=== PATIENT | male | born 1960 | race African-American/Black ===

== ENCOUNTER 2020-10-18 08:34 | Inpatient (IN) | payer OTHER ==
[~2020-10-18] VITALS: Ht 182.9 cm; Wt 114.0 kg
[2020-10-18] MEDS ORDERED: SODIUM CHLORIDE 0.9% 1,000 ML IV ONE (09:45)
[2020-10-18 10:30] LABS: Basophils # (auto) 0.1 10 ^3/uL (0-0.2); Basophils % (auto) 0.5 % (0.0-2.0); Eosinophils # (auto) 0 10 ^3/uL (0-0.8); Hematocrit 49.4 % (41.0-53.0); Hemoglobin 16.9 g/dL (13.5-17.5); Lymphocytes # (auto) 0.8 10 ^3/uL (0.4-5.4); Lymphocytes % (auto) 5.7 % (10.0-50.0); Mean Corpuscular Hemoglobin 29.4 pg (28.0-32.0); Mean Corpuscular Hgb Conc. 34.2 g/dL (32.0-36.0); Mean Corpuscular Volume 86.1 fL (80.0-100.0); Monocytes # (auto) 0.7 10 ^3/uL (0-1.3); Monocytes % (auto) 4.5 % (0.0-12.0); Neutrophils # (auto) 12.9 10 ^3/uL (1.6-8.6); Neutrophils % (auto) 89.3 % (37.0-80.0); Nucleated Red Blood Cells % 0.2 %; Platelet Count (auto) 215 10^3/uL (140-450); Red Blood Cells 5.74 10^6/uL (4.5-5.90); Red Cell Distribution Width 12.4 % (11.8-14.3); White Blood Cell 14.4 10^3/uL (4.4-10.8)
[2020-10-18 11:19] LABS: Albumin 4.1 g/dL (3.4-5.0); Anion Gap 16 (5-15); Blood Urea Nitrogen 29 mg/dL (7-18); Calcium 8.8 mg/dL (8.5-10.1); Carbon Dioxide 16 mmol/L (21-32); Chloride 97 mmol/L (98-107); Potassium 5.1 mmol/L (3.5-5.1); Sodium 129 mmol/L (136-145)
[2020-10-18 11:30] LABS: Alanine Aminotransferase 24 U/L (16-61); Alkaline Phosphatase 91 U/L (45-117); Aspartate Aminotransferase 7 U/L (15-37); Bilirubin, Total 0.8 mg/dL (0.2-1.0); GFR African American 54 mL/min; GFR Non-African American 44 mL/min; Total Protein 9.2 g/dL (6.4-8.2)
[2020-10-18 11:38] LABS: BUN/Creatinine Ratio 17.2
[2020-10-18 11:41] LABS: Glucose 547 mg/dL (74-106)
[2020-10-18] MEDS ORDERED: InsuLIN REG 1unit/0.01ml Soln (100units/ml) IV ONE ×2 (12:30→23:30)
[2020-10-18] MEDS ORDERED: DEXTROSE (50%) 50ML SYRG IV PRN ×2 (12:30→23:30)
[2020-10-18] MEDS ORDERED: IOHEXOL 350 MG/ML 100ML IJ ONE ×2 (12:45→23:21)
[2020-10-18] MEDS ORDERED: ACCU-CHEK COMFORT CURVE STRIP VI SCH (13:30)
[2020-10-18 14:22] LABS: Magnesium 2.6 mg/dL (1.6-2.6); Phosphorus 5.2 mg/dL (2.5-4.90)
[2020-10-18] MEDS ORDERED: SODIUM CHLORIDE 0.9% 1,000 ML IV SCH (16:30)
[2020-10-18 22:55] LABS: BUN/Creatinine Ratio 18.3
[2020-10-18 23:00] LABS: Potassium 5.6 mmol/L (3.5-5.1)
[2020-10-18] MEDS ORDERED: MORPHINE SULF INJ 2 MG/ML SYRINGE 1ML IV PRN (23:30)
[2020-10-18] MEDS ORDERED: MORPHINE SULFATE 4 MG/ML SYR/VIAL IV PRN (23:30)
[2020-10-18] MEDS ORDERED: DOCUSATE SOD 100 MG CAP PO PRN (23:30)
[2020-10-18] MEDS ORDERED: NITROGLYCERIN 0.4 MG SL TAB SL PRN (23:30)
[2020-10-18] MEDS ORDERED: ACETAMINOPHEN 325 MG TAB PO PRN (23:30)
[2020-10-18] MEDS ORDERED: HYDROcodone-ACET 5/325MG TAB PO PRN (23:30)
[2020-10-18] MEDS ORDERED: ONDANSETRON HCL 4 MG/2 ML VIAL IV PRN (23:30)
[2020-10-18] MEDS ORDERED: SODIUM ZIRCONIUM CYCL 10 GM PAK PO ONE (23:30)
[2020-10-19] MEDS: SODIUM CHLORIDE 0.9% 1,000 ML IV SCH ×9 (00:31→21:58)
[2020-10-19] MEDS: ACCU-CHEK COMFORT CURVE STRIP VI SCH ×6 (00:38→19:53)
[2020-10-19] MEDS: InsuLIN REG 1unit/0.01ml Soln (100units/ml) SC SCH ×6 (00:45→19:53)
[2020-10-19] MEDS: InsuLIN R (HUMAN) 100 UNITS in SODIUM CHL 0.9% 99 ML IV SCH ×2 (01:02→12:30)
[2020-10-19 01:31] LABS: BUN/Creatinine Ratio 19.4; Calcium 8.7 mg/dL (8.5-10.1); Potassium 5.3 mmol/L (3.5-5.1)
[2020-10-19 07:11] LABS: Basophils # (auto) 0 10 ^3/uL (0-0.2); Basophils % (auto) 0.2 % (0.0-2.0); Eosinophils # (auto) 0 10 ^3/uL (0-0.8); Hematocrit 46.7 % (41.0-53.0); Hemoglobin 16.2 g/dL (13.5-17.5); Lymphocytes # (auto) 1.4 10 ^3/uL (0.4-5.4); Lymphocytes % (auto) 9.3 % (10.0-50.0); Mean Corpuscular Hemoglobin 29.7 pg (28.0-32.0); Mean Corpuscular Hgb Conc. 34.6 g/dL (32.0-36.0); Mean Corpuscular Volume 85.9 fL (80.0-100.0); Monocytes # (auto) 1.5 10 ^3/uL (0-1.3); Monocytes % (auto) 9.3 % (0.0-12.0); Neutrophils # (auto) 12.7 10 ^3/uL (1.6-8.6); Neutrophils % (auto) 81.2 % (37.0-80.0); Nucleated Red Blood Cells % 0.1 %; Platelet Count (auto) 195 10^3/uL (140-450); Red Blood Cells 5.44 10^6/uL (4.5-5.90); Red Cell Distribution Width 12.9 % (11.8-14.3); White Blood Cell 15.6 10^3/uL (4.4-10.8)
[2020-10-19 07:35] LABS: Potassium 4.5 mmol/L (3.5-5.1)
[2020-10-19 07:44] LABS: Albumin 3.8 g/dL (3.4-5.0); BUN/Creatinine Ratio 18.1; Bilirubin, Total 0.6 mg/dL (0.2-1.0); Calcium 8.6 mg/dL (8.5-10.1); Total Protein 8.8 g/dL (6.4-8.2)
[2020-10-19 09:21] LABS: Cholesterol 220 mg/dL (< 200); HDL Cholesterol 41 mg/dL (40-59); LDL Cholesterol 151 mg/dL (< 100); Triglycerides 121 mg/dL (< 150)
[2020-10-19] MEDS ORDERED: INSULIN LANTUS (GLARGINE) 1 /0.01ml (100units/ml) SC SCH (10:00)
[2020-10-19] MEDS: HEPARIN SODIUM (PORCINE) 5000 UNITS/ML 1ML VIAL SC SCH ×2 (10:10→21:58)
[2020-10-19] MEDS: FAMOTIDINE (10MG/ML) 2ML VL IV SCH ×2 (10:10→21:58)
[2020-10-19] MEDS ORDERED: INSULIN LANTUS (GLARGINE) 1 /0.01ml (100units/ml) SC ONE (15:00)
[2020-10-20] MEDS: ACCU-CHEK COMFORT CURVE STRIP VI SCH ×7 (02:15→23:33)
[2020-10-20] MEDS: InsuLIN REG 1unit/0.01ml Soln (100units/ml) SC SCH ×7 (02:20→23:36)
[2020-10-20] MEDS: SODIUM CHLORIDE 0.9% 1,000 ML IV SCH ×3 (03:55→09:41)
[2020-10-20 06:55] LABS: Basophils # (auto) 0 10 ^3/uL (0-0.2); Basophils % (auto) 0.4 % (0.0-2.0); Eosinophils # (auto) 0 10 ^3/uL (0-0.8); Eosinophils % (auto) 0.4 % (0.0-7.0); Hematocrit 39.2 % (41.0-53.0); Hemoglobin 13.5 g/dL (13.5-17.5); Lymphocytes # (auto) 1.8 10 ^3/uL (0.4-5.4); Lymphocytes % (auto) 18.2 % (10.0-50.0); Mean Corpuscular Hemoglobin 29.1 pg (28.0-32.0); Mean Corpuscular Hgb Conc. 34.5 g/dL (32.0-36.0); Mean Corpuscular Volume 84.4 fL (80.0-100.0); Monocytes # (auto) 0.9 10 ^3/uL (0-1.3); Neutrophils # (auto) 7.2 10 ^3/uL (1.6-8.6); Platelet Count (auto) 167 10^3/uL (140-450); Red Blood Cells 4.65 10^6/uL (4.5-5.90); Red Cell Distribution Width 12.6 % (11.8-14.3)
[2020-10-20 07:20] LABS: Potassium 3.6 mmol/L (3.5-5.1)
[2020-10-20 07:25] LABS: Albumin 3.2 g/dL (3.4-5.0); BUN/Creatinine Ratio 18.5; Bilirubin, Total 0.7 mg/dL (0.2-1.0)
[2020-10-20] MEDS: FAMOTIDINE (10MG/ML) 2ML VL IV SCH ×2 (09:34→21:59)
[2020-10-20] MEDS: HEPARIN SODIUM (PORCINE) 5000 UNITS/ML 1ML VIAL SC SCH ×2 (09:40→22:00)
[2020-10-20] MEDS ORDERED: INSULIN LANTUS (GLARGINE) 1 /0.01ml (100units/ml) SC SCH (10:00)
[2020-10-20 16:30] VITALS: BP 143/87
[2020-10-20] MEDS ORDERED: PANTOPRAZOLE 40 MG TAB PO ONE (16:30)
--- NOTE | 2020-10-20 16:30 | NUR ---
Telemetry admit from ER REGGIE HENDRIX V admitted to Telemetry unit after SBAR received. Patient oriented to ARIANE SOW, RN primary RN, unit, room 294A, bed, and unit policies regarding patient care and visiting hours. Patient now on continuous telemetry monitoring, tele box # 52 and telemetry reading on arrival to unit is sinus rhythm 82. Patient weighed by bedscale and encouraged to call if they need something. All questions and concerns addressed, patient verbalized understanding. Bed in low and locked position, rails up x2, no-slip socks offered, patient refused at this time.
--- NOTE | 2020-10-20 16:45 | NUR ---
DR PLUMMER AT BEDSIDE
[2020-10-20] MEDS: SUCRALFATE 1 GM/10 ML ORAL SUSP PO SCH ×2 (16:55→21:59)
[2020-10-20 17:06] VITALS: BP 143/87
[2020-10-20] MEDS ORDERED: TAMS0.4C36 PO (17:35)
--- NOTE | 2020-10-20 18:25 | NUR ---
URINE SPECIMEN COLLECTED
--- NOTE | 2020-10-20 19:00 | NUR ---
Opening Shift Note Assumed care of patient, awake and alert. No S/S of distress/SOB or pain. Instructed on POC and to call for assist PRN, will continue to monitor for changes Q1hr and PRN. Patient in the lowest possible position with call light within reach. Bed rails up x2.
[2020-10-20 20:00] VITALS: BP 118/70
[2020-10-20] MEDS: CLOTRIMAZOLE 1 % CREAM 15GM TOP SCH (21:59)
[2020-10-20] MEDS: PANTOPRAZOLE 40 MG TAB PO SCH (21:59)
[2020-10-20 22:00] VITALS: BP 118/70
[2020-10-20] MEDS: INSULIN LANTUS (GLARGINE) 1 /0.01ml (100units/ml) SC SCH (22:00)
[2020-10-20] MEDS ORDERED: MICONAZOLE NITRATE 2 % VAGINAL CREAM 45 GM PV SCH (22:00)
[2020-10-21] MEDS: SODIUM CHLORIDE 0.9% 1,000 ML IV SCH ×2 (01:30→18:21)
[2020-10-21] MEDS: ACCU-CHEK COMFORT CURVE STRIP VI SCH ×5 (03:59→21:16)
[2020-10-21] MEDS: InsuLIN REG 1unit/0.01ml Soln (100units/ml) SC SCH ×5 (04:09→21:16)
[2020-10-21] MEDS: SUCRALFATE 1 GM/10 ML ORAL SUSP PO SCH ×4 (06:12→21:18)
[2020-10-21] MEDS: INSULIN LANTUS (GLARGINE) 1 /0.01ml (100units/ml) SC SCH ×2 (06:16→21:17)
--- NOTE | 2020-10-21 07:30 | NUR ---
Opening Shift Note Assumed care of patient, resting comfortably. No S/S of distress/SOB or pain on room air. Instructed on POC and to call for assist PRN, will continue to monitor for changes Q1hr and PRN. Bed in low and locked position, rails up x2, no-slip socks on.
[2020-10-21 09:00] VITALS: BP 138/75
[2020-10-21] MEDS: FAMOTIDINE (10MG/ML) 2ML VL IV SCH ×2 (10:30→21:19)
[2020-10-21] MEDS: PANTOPRAZOLE 40 MG TAB PO SCH ×2 (10:30→21:19)
[2020-10-21] MEDS: CLOTRIMAZOLE 1 % CREAM 15GM TOP SCH ×2 (10:34→21:19)
[2020-10-21] MEDS: HEPARIN SODIUM (PORCINE) 5000 UNITS/ML 1ML VIAL SC SCH ×2 (10:34→21:18)
--- NOTE | 2020-10-21 10:55 | NUR ---
DR PLUMMER AT BEDSIDE
[2020-10-21] MEDS ORDERED: INSULIN LANTUS (GLARGINE) 1 /0.01ml (100units/ml) SC ONE (11:00)
--- NOTE | 2020-10-21 12:00 | NUR ---
Nutrition Assessment/Consult Notes Please refer to link for full assessment notes. Est Energy needs: 1151-4711 kcals (23-25 kcal/kgBW) Est Protein needs: 65-81 gms/day (0.8-1.0 gm/kgBW) Will continue to monitor and reassess prn. Addendum: 10/21/20 at [address] Amended: Links added.
[2020-10-21 13:00] VITALS: BP 140/91
--- NOTE | 2020-10-21 13:21 | NUR ---
DR TRUJILLO AT BEDSIDE
--- NOTE | 2020-10-21 14:20 | NUR ---
IV insertion/IV removal IV access obtained, via clean sterile technique by inserting 20 gauge catheter at right forearm after 1 attempt. IV secured properly. No trauma to site. Patient tolerated well. IV DC'd to right hand with clean sterile technique, catheter fully intact due to pain and tenderness on flushing. Pressure dressing applied to site. Patient tolerated well.
[2020-10-21 17:00] VITALS: BP 127/94
[2020-10-21 22:00] VITALS: BP 123/75
[2020-10-21 23:04] LABS: Basophils # (auto) 0 10 ^3/uL (0-0.2); Basophils % (auto) 0.5 % (0.0-2.0); Eosinophils # (auto) 0.1 10 ^3/uL (0-0.8); Eosinophils % (auto) 1.3 % (0.0-7.0); Hematocrit 39.3 % (41.0-53.0); Hemoglobin 13.9 g/dL (13.5-17.5); Lymphocytes # (auto) 1.8 10 ^3/uL (0.4-5.4); Lymphocytes % (auto) 27.8 % (10.0-50.0); Mean Corpuscular Hemoglobin 29.9 pg (28.0-32.0); Mean Corpuscular Hgb Conc. 35.3 g/dL (32.0-36.0); Mean Corpuscular Volume 84.8 fL (80.0-100.0); Monocytes # (auto) 0.8 10 ^3/uL (0-1.3); Monocytes % (auto) 11.4 % (0.0-12.0); Neutrophils # (auto) 3.9 10 ^3/uL (1.6-8.6); Nucleated Red Blood Cells % 0.2 %; Platelet Count (auto) 125 10^3/uL (140-450); Red Blood Cells 4.64 10^6/uL (4.5-5.90); Red Cell Distribution Width 12.4 % (11.8-14.3); White Blood Cell 6.6 10^3/uL (4.4-10.8)
[2020-10-21 23:26] LABS: Potassium 3.3 mmol/L (3.5-5.1)
[2020-10-21 23:30] LABS: BUN/Creatinine Ratio 15.2; Calcium 8.1 mg/dL (8.5-10.1)
[2020-10-22] MEDS: SODIUM CHLORIDE 0.9% 1,000 ML IV SCH (01:20)
[2020-10-22] MEDS: ACCU-CHEK COMFORT CURVE STRIP VI SCH ×6 (04:00→20:00)
[2020-10-22] MEDS: InsuLIN REG 1unit/0.01ml Soln (100units/ml) SC SCH ×5 (04:00→16:00)
[2020-10-22 05:00] VITALS: BP 116/78
[2020-10-22] MEDS: SUCRALFATE 1 GM/10 ML ORAL SUSP PO SCH ×3 (06:41→17:50)
[2020-10-22] MEDS: INSULIN LANTUS (GLARGINE) 1 /0.01ml (100units/ml) SC SCH (06:48)
--- NOTE | 2020-10-22 08:08 | NUR ---
Patient sitting on the edge of the bed. He drank some juices and informed patient not to eat or drink after 0800. Surgery called and patient is scheduled to have EGD at 1300. Consent form signed, except the check lists. will fill it out. call light within reach, bed in low position, instructed patient to call for assistance when getting out of the bed. will continue to monitor patient.
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
[2020-10-22 09:00] VITALS: BP 116/73
[2020-10-22] MEDS: HEPARIN SODIUM (PORCINE) 5000 UNITS/ML 1ML VIAL SC SCH (10:00)
[2020-10-22] MEDS: FAMOTIDINE (10MG/ML) 2ML VL IV SCH (10:07)
[2020-10-22] MEDS: PANTOPRAZOLE 40 MG TAB PO SCH (10:09)
[2020-10-22] MEDS: CLOTRIMAZOLE 1 % CREAM 15GM TOP SCH (10:10)
[2020-10-22 11:07] LABS: Basophils # (auto) 0 10 ^3/uL (0-0.2); Basophils % (auto) 0.6 % (0.0-2.0); Eosinophils # (auto) 0.1 10 ^3/uL (0-0.8); Eosinophils % (auto) 1.8 % (0.0-7.0); Hematocrit 38.4 % (41.0-53.0); Hemoglobin 13.5 g/dL (13.5-17.5); Lymphocytes # (auto) 1.5 10 ^3/uL (0.4-5.4); Lymphocytes % (auto) 26.7 % (10.0-50.0); Mean Corpuscular Hemoglobin 29.5 pg (28.0-32.0); Mean Corpuscular Hgb Conc. 35.2 g/dL (32.0-36.0); Mean Corpuscular Volume 83.9 fL (80.0-100.0); Monocytes # (auto) 0.7 10 ^3/uL (0-1.3); Monocytes % (auto) 12.1 % (0.0-12.0); Neutrophils # (auto) 3.4 10 ^3/uL (1.6-8.6); Neutrophils % (auto) 58.8 % (37.0-80.0); Nucleated Red Blood Cells % 0.2 %; Platelet Count (auto) 126 10^3/uL (140-450); Red Blood Cells 4.58 10^6/uL (4.5-5.90); Red Cell Distribution Width 12.2 % (11.8-14.3); White Blood Cell 5.7 10^3/uL (4.4-10.8)
[2020-10-22 11:21] LABS: Calcium 8.1 mg/dL (8.5-10.1); Potassium 3.3 mmol/L (3.5-5.1)
[2020-10-22 11:22] LABS: BUN/Creatinine Ratio 10.1
[2020-10-22 11:28] LABS: INR 1.07 (0.9-1.15); Partial Thromboplastin Time 24.6 sec (23.0-31.2)
[2020-10-22 13:00] VITALS: BP 126/77
[2020-10-22] MEDS ORDERED: MIDAZOLAM HCL 1MG/1ML-2 ML VIAL ONE (13:23)
[2020-10-22] MEDS ORDERED: LIDOCAINE 1% (LOCAL ANESTH.) PF 5ml SDV ONE (13:24)
[2020-10-22] MEDS ORDERED: PROPOFOL 10 MG/ML 20 ML IV ONE (13:25)
[2020-10-22] MEDS ORDERED: KETAMINE HCL 10 ML ONE (13:26)
[2020-10-22] MEDS ORDERED: diphenhdrAMINE HCL 50 MG/1 ML VL ONE (13:26)
[2020-10-22] MEDS ORDERED: GLYCOPYRROLATE 0.2 MG/ML 1ML VIAL ONE (13:26)
[2020-10-22] MEDS ORDERED: SUCCINYLCHOLINE CHLORIDE 20 MG/ML 10ML VIAL IV ONE (13:36)
[2020-10-22] MEDS ORDERED: POTASSIUM EFFERVESENT TAB 25 MEQ PO ONE (16:30)
[2020-10-22 16:58] VITALS: BP 112/67
--- NOTE | 2020-10-22 19:01 | NUR ---
Patient denies any abdominal pain or discomfort. vital signs stable. held morning dose of heparin subQ due to procedure, notified Dr. Saldana in the nursing station. Patient went down to EGD at 1225 and came back at 1430. patient was drawsy, but arousable and awake at 1600 requesting "real food and not clear liquid or full liquid" diet. Dr. Saldana notified and changed diet to CCHO diet. patient denies any pain or discomfort after the procedure and vital signs were stable.
[2020-10-22] MEDS ORDERED: HEPARIN SODIUM (PORCINE) 5000 UNITS/ML 1ML VIAL ONE (23:56)
[2020-10-23] MEDS: FAMOTIDINE (10MG/ML) 2ML VL IV SCH ×3 (00:04→22:12)
[2020-10-23] MEDS: PANTOPRAZOLE 40 MG TAB PO SCH ×3 (00:04→22:12)
[2020-10-23] MEDS: SUCRALFATE 1 GM/10 ML ORAL SUSP PO SCH ×5 (00:04→22:11)
[2020-10-23 00:07] VITALS: BP 120/71
[2020-10-23] MEDS: INSULIN LANTUS (GLARGINE) 1 /0.01ml (100units/ml) SC SCH ×3 (00:13→22:18)
[2020-10-23] MEDS: InsuLIN REG 1unit/0.01ml Soln (100units/ml) SC SCH ×7 (00:14→20:45)
[2020-10-23] MEDS: CLOTRIMAZOLE 1 % CREAM 15GM TOP SCH ×3 (00:15→22:15)
[2020-10-23] MEDS: ACCU-CHEK COMFORT CURVE STRIP VI SCH ×6 (04:00→20:25)
--- NOTE | 2020-10-23 04:49 | NUR ---
193: Received report bedside, and pt updated on POC; all questions answered to pt satisfaction. Whiteboard updated and pt c/o 8/10 intermittent midline chest "burning" that is exacerbated when eating or drinking. Pt education reinforced and pt reminded about the benefits of repositioning to an upright position for 30 to 60 min after oral intake. Pt IADLs and repositioned self to sitting bedside position. Pt currently running NS at 60 mL/h continuous IVF infusion through 22G RFA with flush and sluggish return. 250 mL UO emptied from the urinal left on bedside table - yellow, clear, no odor. 1999: TEL52, HR 99, MARGARET 0.16, QRS 0.08, NSR with no PVCs or pauses. 2099: VS: T 97.7, HR 95, RR 20, SpO2 98% RA, BP 120/71 RUE, 8/10 pain; Wt 94.4 kg. 2146: VS: T 98.5 oral, HR 92, RR 18, SpO2 97% on RA, BP 109/78 LUE, MAP 86, stated pain level is resolving. RN offered pain med; however, pt refused stating he would rather wait for the scheduled GI meds because he "doesn't want to get addicted." Education provided. 2240: TEL25 box arrived from ICU and placed on pt. 200 mL UO emptied from urinal found on bedside table. 2351: POCT glucose 336; therfore, 12 units of regular insulin administered per sliding scale parameters along with 15 units of Lantus as ordered. Heparin 5,000 units SQ held to clarify parameters. Plt 126. Unit staff was questioned regarding hospital protocol; however, no consensus for safe administration could be made. 0020: PharmacistSantino was consulted regarding [facility] policy; however, no specific parameter found. Santino left note which will be addressed when In-house pharmacy opens at 0630. 0042: Hospitalist paged to clarify parameters for holding. Awaiting response. Pt updated. 225 mL of UO emptied. Q4h POCT glucose assessment: 261 - 9 units of regular insulin administered. 225 mL UO emptied. 0600: VS: 98.4 oral, HR 82, RR 16, SpO2 96% RA, BP 149/52 RUE, no c/o pain at this time. Intake 1000 mL, no BM. Beverley Velarde, BSN, RN, SCRN, PCCN, VA-BC, CLAUDIA, TCRN, MICN - a shared [employer] employee from [facility] - Telemetry Unit
[2020-10-23 05:48] VITALS: BP 119/52
[2020-10-23] MEDS: SODIUM CHLORIDE 0.9% 1,000 ML IV SCH ×2 (06:15→18:10)
[2020-10-23 06:30] LABS: Basophils # (auto) 0 10 ^3/uL (0-0.2); Basophils % (auto) 0.4 % (0.0-2.0); Eosinophils # (auto) 0.2 10 ^3/uL (0-0.8); Eosinophils % (auto) 2.9 % (0.0-7.0); Hematocrit 37.4 % (41.0-53.0); Hemoglobin 13.1 g/dL (13.5-17.5); Lymphocytes % (auto) 28.5 % (10.0-50.0); Mean Corpuscular Hemoglobin 29.4 pg (28.0-32.0); Mean Corpuscular Volume 83.9 fL (80.0-100.0); Monocytes # (auto) 0.8 10 ^3/uL (0-1.3); Monocytes % (auto) 11.6 % (0.0-12.0); Neutrophils # (auto) 3.9 10 ^3/uL (1.6-8.6); Neutrophils % (auto) 56.6 % (37.0-80.0); Nucleated Red Blood Cells % 0.2 %; Platelet Count (auto) 125 10^3/uL (140-450); Red Blood Cells 4.46 10^6/uL (4.5-5.90); Red Cell Distribution Width 12.7 % (11.8-14.3); White Blood Cell 6.9 10^3/uL (4.4-10.8)
[2020-10-23 07:00] LABS: Potassium 3.1 mmol/L (3.5-5.1)
[2020-10-23 07:07] LABS: BUN/Creatinine Ratio 8.5; Calcium 8.2 mg/dL (8.5-10.1)
[2020-10-23 08:30] VITALS: BP 126/75
--- NOTE | 2020-10-23 08:30 | NUR ---
Checked blood sugar: 106 mg/dl - no coverage required. Patient stable at this time.
--- NOTE | 2020-10-23 10:05 | NUR ---
Patient resting comfortably in bed with Dr. Salamanca at bedside. Patient stable at this time.
[2020-10-23] MEDS: HEPARIN SODIUM (PORCINE) 5000 UNITS/ML 1ML VIAL SC SCH ×2 (10:12→22:33)
[2020-10-23] MEDS ORDERED: POTASSIUM CHLORIDE 8 MEQ TAB PO ONE (11:15)
--- NOTE | 2020-10-23 12:16 | NUR ---
Pt is an alert and oriented male that resides with his girlfriend and functions independently at home. Pt uses no assistive devices and states he has a good support system with family. discussed advance directives but pt declined at this time. Pt state he has transportation home with no limitations. No further SS concerns or needs. Will continue to monitor and provide intervention as appropriate. Addendum: 10/23/20 at 1222 by BOBO HOWARD SS Amended: Links added.
[2020-10-23] MEDS: NYSTATIN (MOUTH-THROAT) 500,000 UNITS/5 ML SUSP MT SCH ×3 (12:19→22:11)
--- NOTE | 2020-10-23 12:30 | NUR ---
Scheduled medications given per order. Checked blood sugar: 252 mg/dl - covered per sliding scale. Patient resting comfortably in bed with no complaint of pain at this time. Patient stable.
[2020-10-23 13:00] VITALS: BP 117/81
[2020-10-23 17:00] VITALS: BP 130/87
--- NOTE | 2020-10-23 17:10 | NUR ---
Scheduled medications given per order. Checked blood sugar: 214 mg/dl - covered per sliding scale. Patient stable at this time.
--- NOTE | 2020-10-23 18:25 | NUR ---
Patient resting comfortably in bed with complaint of rectal burning; advised will call and inform doctor. Patient stable throughout shift.
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
[2020-10-23 21:35] VITALS: BP 130/79
[2020-10-24] MEDS: ACCU-CHEK COMFORT CURVE STRIP VI SCH ×5 (04:00→16:43)
[2020-10-24] MEDS: InsuLIN REG 1unit/0.01ml Soln (100units/ml) SC SCH ×5 (04:00→16:53)
[2020-10-24 04:38] VITALS: BP 106/69
[2020-10-24] MEDS: NYSTATIN (MOUTH-THROAT) 500,000 UNITS/5 ML SUSP MT SCH ×3 (06:53→16:42)
[2020-10-24] MEDS: SUCRALFATE 1 GM/10 ML ORAL SUSP PO SCH ×3 (06:53→16:42)
[2020-10-24] MEDS: INSULIN LANTUS (GLARGINE) 1 /0.01ml (100units/ml) SC SCH (07:00)
--- NOTE | 2020-10-24 08:06 | NUR ---
Checked blood sugar: 177 mg/dl - will cover per sliding scale. Patient sitting on side of bed with no complaint of pain at this time. Patient stable. Addendum: 10/24/20 at 0830 by KORI IRWIN RN RN Covered per sliding scale.
[2020-10-24 08:30] VITALS: BP 113/78
[2020-10-24 09:00] VITALS: BP 113/78
[2020-10-24] MEDS: PANTOPRAZOLE 40 MG TAB PO SCH (10:09)
[2020-10-24] MEDS: FAMOTIDINE (10MG/ML) 2ML VL IV SCH (10:10)
[2020-10-24] MEDS: CLOTRIMAZOLE 1 % CREAM 15GM TOP SCH (10:10)
[2020-10-24] MEDS: HEPARIN SODIUM (PORCINE) 5000 UNITS/ML 1ML VIAL SC SCH (10:19)
[2020-10-24] MEDS: SODIUM CHLORIDE 0.9% 1,000 ML IV SCH (12:00)
--- NOTE | 2020-10-24 12:04 | NUR ---
Scheduled medications given per order. Checked blood sugar: 230 mg/dl - will cover per sliding scale. Patient stable at this time.
--- NOTE | 2020-10-24 12:20 | NUR ---
Patient resting comfortably with Dr. Macias at bedside. Covered with insulin per sliding scale. Patient stable at this time.
[2020-10-24] MEDS ORDERED: METF-489 PO (12:33)
[2020-10-24] MEDS ORDERED: SUCR1TAB22 OR (12:33)
[2020-10-24] MEDS ORDERED: PANT40T PO (12:33)
[2020-10-24 12:45] VITALS: BP 126/76
[2020-10-24 15:19] VITALS: BP 126/76
--- NOTE | 2020-10-24 16:43 | NUR ---
Patient sitting in chair at bedside. Scheduled medications given per order. Checked blood sugar: 173 mg/dl - will cover per sliding scale. Patient stable at this time. Addendum: 10/24/20 at 1658 by KORI IRWIN RN RN Covered per sliding scale.
--- NOTE | 2020-10-24 17:16 | NUR ---
Discharge instructions Both written and verbal discharge instructions given as ordered. Encourage to call and make follow up appointment with PMD as instructed. All questions and concerns addressed. Patient verbalized understanding. Medication reconciliation form completed and copy given to patient. Peripheral IV removed intact with no active bleeding; pressure dressing applied to site. Telemetry unit returned to ICU. Patient stable; sitting on side of bed.
--- NOTE | 2020-10-24 17:55 | NUR ---
Discharge Patient taken to vehicle via wheelchair with medications, glucometer, alcohol swabs, and strips from [facility] and all other personal belongings: accompanied by staff member. No distress noted at time of departure.
== END 2020-10-24 17:55 | disposition home or self-care (01) | DRG 420 ==
LOC: ER 08:34 → EDBD 08:34 → TELE 08:35 → TELE-CENTR 10-20 16:12 → TELE-WESTW 10-20 16:12 → TELE-CENTR 10-22 21:44
PROVIDERS: ADMIT Nurse Practitioner Family; ATTEND Internal Medicine
PROC: 0DB88ZX Excision of Small Intestine, Via Natural or Artificial Opening Endoscopic, Diagnostic (ICD-10-PCS; 2020-10-22)
PROC: 0DB78ZX Excision of Stomach, Pylorus, Via Natural or Artificial Opening Endoscopic, Diagnostic (ICD-10-PCS; 2020-10-22)
PROC: 0DB68ZZ Excision of Stomach, Via Natural or Artificial Opening Endoscopic (ICD-10-PCS; 2020-10-22)
PROC: 0DB58ZX Excision of Esophagus, Via Natural or Artificial Opening Endoscopic, Diagnostic (ICD-10-PCS; principal; 2020-10-22 13:24)
DX: E11.10 Type 2 diabetes mellitus with ketoacidosis without coma (principal); N17.0 Acute kidney failure with tubular necrosis; E66.01 Morbid (severe) obesity due to excess calories; E87.1 Hypo-osmolality and hyponatremia; D72.829 Elevated white blood cell count, unspecified; E87.5 Hyperkalemia; E11.22 Type 2 diabetes mellitus with diabetic chronic kidney disease; E87.6 Hypokalemia; J98.11 Atelectasis; K05.10 Chronic gingivitis, plaque induced; K22.10 Ulcer of esophagus without bleeding; K26.9 Duodenal ulcer, unspecified as acute or chronic, without hemorrhage or perforation; K29.70 Gastritis, unspecified, without bleeding; K29.80 Duodenitis without bleeding; K31.7 Polyp of stomach and duodenum; K44.9 Diaphragmatic hernia without obstruction or gangrene; N18.9 Chronic kidney disease, unspecified; Z20.828 Contact with and (suspected) exposure to other viral communicable diseases; Z87.11 Personal history of peptic ulcer disease; K21.00 Gastro-esophageal reflux disease with esophagitis, without bleeding; E78.5 Hyperlipidemia, unspecified; Z68.33 Body mass index [BMI] 33.0-33.9, adult
CPT/HCPCS: 36415; 36600; 43239; 71045; 71275; 80048; 80053; 80061; 82010; 82805; 82962; 83036; 83735; 83930; 84100; 84443; 84484; 85025; 85610; 85730; 87426; 93005; 96360; G0378; J0330; J1815; J2250; J2405; J2704; J3490

== ENCOUNTER 2020-12-30 21:27 | Inpatient (IN) | payer OTHER ==
[~2020-12-30] VITALS: Ht 182.9 cm; Wt 102.7 kg
[~2020-12-30 21:27] MED LIST: METF-489 PO; PANT40T PO; SUCR1TAB22 OR; TAMS0.4C36 PO
[2020-12-30] MEDS ORDERED: SODIUM CHLORIDE 0.9% 1,000 ML IV ONE (22:15)
[2020-12-30] MEDS ORDERED: ONDANSETRON HCL 4 MG/2 ML VIAL IV ONE (22:15)
[2020-12-30] MEDS ORDERED: MORPHINE SULFATE 4 MG/ML SYR/VIAL IV ONE (22:15)
[2020-12-30] MEDS ORDERED: InsuLIN REG 1unit/0.01ml Soln (100units/ml) IV ONE (22:15)
[2020-12-30 23:13] LABS: Hematocrit 51.1 % (41.0-53.0); Hemoglobin 17.8 g/dL (13.5-17.5); Mean Corpuscular Hgb Conc. 34.9 g/dL (32.0-36.0); Mean Corpuscular Volume 83.3 fL (80.0-100.0); Platelet Count (auto) 168 10^3/uL (140-450); Red Blood Cells 6.13 10^6/uL (4.5-5.90); Red Cell Distribution Width 13.3 % (11.8-14.3); White Blood Cell 12.7 10^3/uL (4.4-10.8)
[2020-12-30 23:19] LABS: Basophils % (manual) 0 (0.0-2.0); Blast Cells 0; Eosinophils % (manual) 0 (0-7); Promyelocytes % 0; Reactive Lymphocytes 0
[2020-12-30 23:32] LABS: Band Neutrophils % (manual) 24; Lymphocytes % (manual) 14 (10.0-50.0); Metamyelocytes % 3; Monocytes % (manual) 9 (0-12); Myelocytes % 2
[2020-12-31] MEDS ORDERED: SODIUM BICARBONATE 8.4 % INJ 50ML VIAL IV ONE ×4 (01:30→19:15)
[2020-12-31] MEDS ORDERED: SODIUM BICARBONATE 50ML VIAL 50 ML in SOD CHL 0.45% 1,000 ML IV ONE (01:30)
[2020-12-31] MEDS ORDERED: SODIUM BICARBONATE 8.4% INJ 50ML SYRINGE ONE (02:02)
[2020-12-31 02:42] LABS: Urine Bacteria NONE SEEN /hpf (None Seen); Urine Blood Negative /uL (Negative); Urine Hyaline Cast MANY /lpf (0 - 2); Urine Specific Gravity 1.028 (1.001-1.035); Urine WBC 1 /hpf (0 - 3)
[2020-12-31 03:35] LABS: Alcohol, Urine < 3.0 mg/dL (0-10); Amphetamine Screen, Urine NEGATIVE (NEGATIVE); Barbiturate Scree,Urine NEGATIVE (NEGATIVE); Benzodiazephine Screen, Urine NEGATIVE (NEGATIVE); Cannabinoid Screen, Urine NEGATIVE (NEGATIVE); Cocaine Screen, Urine NEGATIVE (NEGATIVE); Opiate Scree,Urine NEGATIVE (NEGATIVE); Phencyclidine Screen, Urine NEGATIVE (NEGATIVE)
[2020-12-31 07:05] LABS: INR 1.08 (0.9-1.15); Partial Thromboplastin Time 23.8 sec (23.0-31.2)
[2020-12-31 07:14] LABS: Alanine Aminotransferase 10 U/L (16-61); Albumin 3.5 g/dL (3.4-5.0); Alkaline Phosphatase 65 U/L (45-117); Anion Gap 20 (5-15); Aspartate Aminotransferase 4 U/L (15-37); BUN/Creatinine Ratio 10.9; Bilirubin, Total 0.6 mg/dL (0.2-1.0); Blood Urea Nitrogen 13 mg/dL (7-18); Calcium 8.3 mg/dL (8.5-10.1); Carbon Dioxide 11 mmol/L (21-32); Chloride 101 mmol/L (98-107); GFR African American 80 mL/min; GFR Non-African American 66 mL/min; Glucose 310 mg/dL (74-106); Potassium 3.9 mmol/L (3.5-5.1); Sodium 132 mmol/L (136-145); Total Protein 7.7 g/dL (6.4-8.2)
[2020-12-31] MEDS: SODIUM CHLORIDE 0.9% 1,000 ML IV SCH ×2 (07:45→09:45)
[2020-12-31] MEDS ORDERED: INSULIN LANTUS (GLARGINE) 1 /0.01ml (100units/ml) SC ONE (07:45)
[2020-12-31] MEDS ORDERED: ACETAMINOPHEN 325 MG TAB PO PRN (07:45)
[2020-12-31] MEDS ORDERED: TEMAZEPAM 15 MG CAP PO PRN (07:45)
[2020-12-31] MEDS ORDERED: NITROGLYCERIN 0.4 MG SL TAB SL PRN (07:45)
[2020-12-31] MEDS ORDERED: DEXTROSE (50%) 50ML SYRG IV PRN ×2 (07:45→15:30)
[2020-12-31] MEDS ORDERED: ONDANSETRON HCL 4 MG/2 ML VIAL IV PRN (07:45)
[2020-12-31] MEDS ORDERED: MORPHINE SULF INJ 2 MG/ML SYRINGE 1ML IV PRN (07:45)
[2020-12-31] MEDS: ACCU-CHEK COMFORT CURVE STRIP VI SCH ×6 (09:06→22:00)
[2020-12-31] MEDS: PANTOPRAZOLE 40 MG/10 ML VIAL INJ IV SCH (10:00)
[2020-12-31] MEDS: InsuLIN R (HUMAN) 100 UNITS in SODIUM CHL 0.9% 99 ML IV SCH ×2 (11:30→14:13)
[2020-12-31] MEDS ORDERED: SODIUM CHLORIDE 0.9% 1,000 ML IV SCH ×2 (11:45→13:45)
[2020-12-31 14:54] LABS: BUN/Creatinine Ratio 9.3; Calcium 8.5 mg/dL (8.5-10.1); Potassium 3.7 mmol/L (3.5-5.1)
[2020-12-31] MEDS: SOD CHL 0.9%/ KCL 20MEQ 1,000 ML IV SCH (15:30)
[2020-12-31] MEDS: InsuLIN REG 1unit/0.01ml Soln (100units/ml) SC SCH ×2 (15:44→22:50)
[2020-12-31] MEDS ORDERED: ETOMIDATE (2MG/ML) 20ML VIAL IV ONE (18:49)
[2020-12-31] MEDS ORDERED: SUCCINYLCHOLINE CHLORIDE 20 MG/ML 10ML VIAL IV ONE (18:49)
[2020-12-31 19:23] LABS: Basophils # (auto) 0.1 10 ^3/uL (0-0.2); Basophils % (auto) 0.6 % (0.0-2.0); Eosinophils # (auto) 0.1 10 ^3/uL (0-0.8); Eosinophils % (auto) 0.8 % (0.0-7.0); Hemoglobin 14.4 g/dL (13.5-17.5); Lymphocytes # (auto) 3.2 10 ^3/uL (0.4-5.4); Lymphocytes % (auto) 33.6 % (10.0-50.0); Mean Corpuscular Hemoglobin 29.3 pg (28.0-32.0); Mean Corpuscular Hgb Conc. 34.2 g/dL (32.0-36.0); Mean Corpuscular Volume 85.6 fL (80.0-100.0); Monocytes % (auto) 10.2 % (0.0-12.0); Neutrophils # (auto) 5.2 10 ^3/uL (1.6-8.6); Neutrophils % (auto) 54.8 % (37.0-80.0); Nucleated Red Blood Cells % 0.3 %; Platelet Count (auto) 132 10^3/uL (140-450); Red Blood Cells 4.91 10^6/uL (4.5-5.90); Red Cell Distribution Width 13.3 % (11.8-14.3); White Blood Cell 9.5 10^3/uL (4.4-10.8)
[2020-12-31 19:39] LABS: Alanine Aminotransferase 12 U/L (16-61); Albumin 3.5 g/dL (3.4-5.0); Anion Gap 14 (5-15); Blood Urea Nitrogen 11 mg/dL (7-18); Calcium 8.5 mg/dL (8.5-10.1); Carbon Dioxide 13 mmol/L (21-32); Chloride 106 mmol/L (98-107); Glucose 263 mg/dL (74-106); Potassium 3.4 mmol/L (3.5-5.1); Sodium 133 mmol/L (136-145)
[2020-12-31 19:44] LABS: Alkaline Phosphatase 69 U/L (45-117); Aspartate Aminotransferase 7 U/L (15-37); BUN/Creatinine Ratio 8.4; Bilirubin, Total 0.7 mg/dL (0.2-1.0); GFR African American 72 mL/min; GFR Non-African American 59 mL/min
[2020-12-31 20:00] VITALS: BP 97/71
[2020-12-31] MEDS ORDERED: LORazepam 2MG/ML-1ML VIAL IV PRN ×2 (20:00)
[2020-12-31 21:24] LABS: Basophils # (auto) 0 10 ^3/uL (0-0.2); Basophils % (auto) 0.4 % (0.0-2.0); Eosinophils # (auto) 0 10 ^3/uL (0-0.8); Eosinophils % (auto) 0.2 % (0.0-7.0); Hematocrit 40.1 % (41.0-53.0); Hemoglobin 13.7 g/dL (13.5-17.5); Lymphocytes # (auto) 0.9 10 ^3/uL (0.4-5.4); Lymphocytes % (auto) 9.3 % (10.0-50.0); Mean Corpuscular Hemoglobin 29.1 pg (28.0-32.0); Mean Corpuscular Hgb Conc. 34.3 g/dL (32.0-36.0); Mean Corpuscular Volume 84.9 fL (80.0-100.0); Monocytes % (auto) 10.5 % (0.0-12.0); Neutrophils # (auto) 7.5 10 ^3/uL (1.6-8.6); Neutrophils % (auto) 79.6 % (37.0-80.0); Platelet Count (auto) 108 10^3/uL (140-450); Red Blood Cells 4.72 10^6/uL (4.5-5.90); Red Cell Distribution Width 13.2 % (11.8-14.3); White Blood Cell 9.4 10^3/uL (4.4-10.8)
[2020-12-31 21:47] LABS: Albumin 3.2 g/dL (3.4-5.0); BUN/Creatinine Ratio 6.6; Calcium 7.9 mg/dL (8.5-10.1); Potassium 3.8 mmol/L (3.5-5.1)
[2020-12-31 21:49] LABS: Bilirubin, Total 0.5 mg/dL (0.2-1.0); Total Protein 6.9 g/dL (6.4-8.2)
[2020-12-31] MEDS: TAMSULOSIN HYDROCHLORIDE 0.4 MG CAP PO SCH (22:47)
[2020-12-31] MEDS: INSULIN LANTUS (GLARGINE) 1 /0.01ml (100units/ml) SC SCH (22:49)
[2021-01-01] VITALS (22 sets, daily range): BP systolic 84–117; BP diastolic 55–71
[2021-01-01] MEDS: SOD CHL 0.9%/ KCL 20MEQ 1,000 ML IV SCH ×2 (04:50→17:30)
[2021-01-01 05:27] LABS: Basophils # (auto) 0 10 ^3/uL (0-0.2); Basophils % (auto) 0.4 % (0.0-2.0); Eosinophils # (auto) 0 10 ^3/uL (0-0.8); Eosinophils % (auto) 0.3 % (0.0-7.0); Hematocrit 37.1 % (41.0-53.0); Lymphocytes # (auto) 1.4 10 ^3/uL (0.4-5.4); Lymphocytes % (auto) 15.6 % (10.0-50.0); Mean Corpuscular Hemoglobin 29.6 pg (28.0-32.0); Mean Corpuscular Hgb Conc. 35.1 g/dL (32.0-36.0); Mean Corpuscular Volume 84.1 fL (80.0-100.0); Monocytes # (auto) 0.8 10 ^3/uL (0-1.3); Monocytes % (auto) 9.1 % (0.0-12.0); Neutrophils # (auto) 6.7 10 ^3/uL (1.6-8.6); Neutrophils % (auto) 74.6 % (37.0-80.0); Nucleated Red Blood Cells % 0.2 %; Platelet Count (auto) 102 10^3/uL (140-450); Red Blood Cells 4.41 10^6/uL (4.5-5.90); Red Cell Distribution Width 13.2 % (11.8-14.3)
[2021-01-01 05:46] LABS: Calcium 8.1 mg/dL (8.5-10.1); Magnesium 1.8 mg/dL (1.6-2.6); Potassium 3.9 mmol/L (3.5-5.1)
[2021-01-01 05:51] LABS: BUN/Creatinine Ratio 7.8; Bilirubin, Total 0.6 mg/dL (0.2-1.0); Total Protein 6.5 g/dL (6.4-8.2)
[2021-01-01] MEDS: ACCU-CHEK COMFORT CURVE STRIP VI SCH ×4 (06:15→22:39)
[2021-01-01] MEDS: InsuLIN REG 1unit/0.01ml Soln (100units/ml) SC SCH ×4 (06:16→22:40)
[2021-01-01] MEDS ORDERED: IOHEXOL 350 MG/ML 100ML IJ ONE ×2 (09:59→14:46)
[2021-01-01] MEDS ORDERED: ENOXAPARIN SOD 100 MG/1 ML SYRINGE SC SCH (10:00)
[2021-01-01] MEDS ORDERED: ENOXAPARIN SOD 40 MG/0.4 ML SYRINGE SC SCH (10:00)
[2021-01-01] MEDS ORDERED: INSULIN LANTUS (GLARGINE) 1 /0.01ml (100units/ml) SC SCH (10:00)
[2021-01-01] MEDS: LACTULOSE 20Gm/30ML SOLN PO SCH (10:24)
[2021-01-01] MEDS: PANTOPRAZOLE 40 MG/10 ML VIAL INJ IV SCH (10:24)
[2021-01-01] MEDS ORDERED: HEPARIN SODIUM (PORCINE) 5000 UNITS/ML 1ML VIAL IV ONE (10:45)
[2021-01-01] MEDS ORDERED: HEPARIN DRIP/D5W 100UNITS/ML 250 ML IV SCH (10:45)
[2021-01-01 11:18] LABS: Cholesterol 137 mg/dL (< 200)
[2021-01-01 11:20] LABS: HDL Cholesterol 35 mg/dL (40-59); LDL Cholesterol 88 mg/dL (< 100); Triglycerides 76 mg/dL (< 150)
[2021-01-01] MEDS ORDERED: LIDOCAINE 2%HCL (LOCAL ANESTH.) INJ 20ML MDV ONE (11:55)
[2021-01-01] MEDS ORDERED: IODIXANOL 320MG/ML 100ML BTL IV ONE (11:55)
[2021-01-01] MEDS ORDERED: CATHFLO ACTIVASE (ALTEPLASE) 2 MG VIAL IV ONE ×3 (12:29→14:17)
[2021-01-01 12:40] LABS: INR 1.31 (0.9-1.15); Partial Thromboplastin Time 56.1 sec (23.0-31.2)
[2021-01-01] MEDS: METOCLOPRAMIDE HCL 5MG/ml INJ 2ml VIAL IV SCH ×2 (14:00→22:39)
[2021-01-01] MEDS ORDERED: diphenhdrAMINE HCL 50 MG/1 ML VL ONE (14:07)
[2021-01-01] MEDS: TAMSULOSIN HYDROCHLORIDE 0.4 MG CAP PO SCH (17:29)
[2021-01-01 18:01] LABS: INR 1.36 (0.9-1.15)
[2021-01-01 18:06] LABS: Partial Thromboplastin Time 128.7 sec (23.0-31.2)
[2021-01-01] MEDS: INSULIN LANTUS (GLARGINE) 1 /0.01ml (100units/ml) SC SCH (22:44)
[2021-01-02] VITALS (62 sets, daily range): BP systolic 75–114; BP diastolic 42–78
[2021-01-02] MEDS ORDERED: SODIUM CHLORIDE 0.9% 500 ML IV ONE (00:30)
[2021-01-02] MEDS: PHENYLEPHRINE IV 250 ML IV SCH ×2 (02:00→07:20)
[2021-01-02 02:31] LABS: Calcium 7.2 mg/dL (8.5-10.1)
[2021-01-02 02:37] LABS: Basophils # (auto) 0 10 ^3/uL (0-0.2); Basophils % (auto) 0.6 % (0.0-2.0); Eosinophils # (auto) 0.1 10 ^3/uL (0-0.8); Eosinophils % (auto) 1.9 % (0.0-7.0); Hematocrit 32.1 % (41.0-53.0); Hemoglobin 11.2 g/dL (13.5-17.5); Lymphocytes # (auto) 1.5 10 ^3/uL (0.4-5.4); Lymphocytes % (auto) 21.8 % (10.0-50.0); Mean Corpuscular Hemoglobin 28.7 pg (28.0-32.0); Mean Corpuscular Hgb Conc. 35.1 g/dL (32.0-36.0); Mean Corpuscular Volume 81.8 fL (80.0-100.0); Monocytes # (auto) 0.6 10 ^3/uL (0-1.3); Monocytes % (auto) 8.7 % (0.0-12.0); Neutrophils # (auto) 4.6 10 ^3/uL (1.6-8.6); Nucleated Red Blood Cells % 0.2 %; Platelet Count (auto) 73 10^3/uL (140-450); Red Blood Cells 3.92 10^6/uL (4.5-5.90); Red Cell Distribution Width 13.3 % (11.8-14.3); White Blood Cell 6.8 10^3/uL (4.4-10.8)
[2021-01-02 02:43] LABS: Potassium 2.9 mmol/L (3.5-5.1)
[2021-01-02 02:48] LABS: INR 1.18 (0.9-1.15)
[2021-01-02 02:50] LABS: Partial Thromboplastin Time 101.9 sec (23.0-31.2)
[2021-01-02] MEDS: METOCLOPRAMIDE HCL 5MG/ml INJ 2ml VIAL IV SCH ×3 (05:53→14:30)
[2021-01-02] MEDS: HEPARIN DRIP/D5W 100UNITS/ML 250 ML IV SCH ×3 (05:55→19:09)
[2021-01-02] MEDS ORDERED: POTASSIUM CHL 20 Meq TABLET PO ONE ×2 (06:00)
[2021-01-02] MEDS: ACCU-CHEK COMFORT CURVE STRIP VI SCH ×4 (06:29→21:37)
[2021-01-02] MEDS: InsuLIN REG 1unit/0.01ml Soln (100units/ml) SC SCH ×4 (06:32→21:44)
[2021-01-02] MEDS: SOD CHL 0.9%/ KCL 20MEQ 1,000 ML IV SCH ×2 (07:30→10:35)
[2021-01-02] MEDS: LACTULOSE 20Gm/30ML SOLN PO SCH ×2 (10:00→21:37)
[2021-01-02] MEDS: PANTOPRAZOLE 40 MG/10 ML VIAL INJ IV SCH (10:00)
[2021-01-02 13:08] LABS: INR 1.13 (0.9-1.15); Partial Thromboplastin Time 65.7 sec (23.0-31.2)
[2021-01-02] MEDS ORDERED: ALBUMIN 25% 50 ML IV ONE (14:15)
[2021-01-02] MEDS ORDERED: FLEET MINERAL OIL ENEMA 133 ML PR ONE (14:30)
[2021-01-02] MEDS: TAMSULOSIN HYDROCHLORIDE 0.4 MG CAP PO SCH (18:00)
[2021-01-02 18:15] LABS: INR 1.08 (0.9-1.15)
[2021-01-02] MEDS ORDERED: HEPARIN SODIUM (PORCINE) 5000 UNITS/ML 1ML VIAL ONE (19:11)
[2021-01-02] MEDS: INSULIN LANTUS (GLARGINE) 1 /0.01ml (100units/ml) SC SCH (21:44)
[2021-01-02] MEDS: CLOTRIMAZOLE 1 % CREAM 15GM TOP SCH (21:45)
[2021-01-03 02:53] LABS: INR 1.1 (0.9-1.15)
[2021-01-03 02:57] LABS: Partial Thromboplastin Time 107.8 sec (23.0-31.2)
[2021-01-03] MEDS: HEPARIN DRIP/D5W 100UNITS/ML 250 ML IV SCH ×2 (03:12→23:54)
[2021-01-03 05:00] VITALS: BP 128/58
[2021-01-03] MEDS: METOCLOPRAMIDE HCL 5MG/ml INJ 2ml VIAL IV SCH (06:00)
[2021-01-03] MEDS: ACCU-CHEK COMFORT CURVE STRIP VI SCH ×4 (06:35→22:24)
[2021-01-03] MEDS: InsuLIN REG 1unit/0.01ml Soln (100units/ml) SC SCH ×4 (06:35→22:00)
[2021-01-03 07:52] LABS: Calcium 7.6 mg/dL (8.5-10.1)
[2021-01-03 07:55] LABS: BUN/Creatinine Ratio 5.7
[2021-01-03 07:58] LABS: INR 1.15 (0.9-1.15); Partial Thromboplastin Time 56.1 sec (23.0-31.2)
[2021-01-03 07:59] LABS: Potassium 2.7 mmol/L (3.5-5.1)
[2021-01-03] MEDS: SOD CHL 0.9%/ KCL 20MEQ 1,000 ML IV SCH (08:19)
[2021-01-03 08:29] LABS: Hematocrit 29.1 % (41.0-53.0); Hemoglobin 10.5 g/dL (13.5-17.5); Mean Corpuscular Hemoglobin 29.4 pg (28.0-32.0); Mean Corpuscular Hgb Conc. 35.9 g/dL (32.0-36.0); Mean Corpuscular Volume 81.9 fL (80.0-100.0); Platelet Count (auto) 82 10^3/uL (140-450); Red Blood Cells 3.55 10^6/uL (4.5-5.90); Red Cell Distribution Width 13.2 % (11.8-14.3); White Blood Cell 4.9 10^3/uL (4.4-10.8)
[2021-01-03 08:36] VITALS: BP 97/66
[2021-01-03 08:36] LABS: Band Neutrophils % (manual) 0; Basophils % (manual) 0 (0.0-2.0); Blast Cells 0; Metamyelocytes % 0; Myelocytes % 0; Promyelocytes % 0; Reactive Lymphocytes 0
[2021-01-03] MEDS ORDERED: POTASSIUM CHL 20 Meq TABLET PO ONE (09:30)
[2021-01-03] MEDS ORDERED: POTASSIUM CHLORIDE 40 MEQ, LIDOCAINE 1% (LOCAL ANESTH.) 4 ML in SODIUM CHL 0.9% 250 ML IV ONE (09:30)
[2021-01-03] MEDS: LACTULOSE 20Gm/30ML SOLN PO SCH ×2 (09:50→21:21)
[2021-01-03] MEDS: PANTOPRAZOLE 40 MG/10 ML VIAL INJ IV SCH (09:50)
[2021-01-03] MEDS: CLOTRIMAZOLE 1 % CREAM 15GM TOP SCH ×2 (09:50→22:00)
[2021-01-03 11:45] LABS: Eosinophils % (manual) 1 (0-7); Lymphocytes % (manual) 38 (10.0-50.0); Monocytes % (manual) 1 (0-12)
[2021-01-03 12:35] VITALS: BP 105/64
[2021-01-03 13:22] LABS: INR 1.08 (0.9-1.15); Partial Thromboplastin Time 51.4 sec (23.0-31.2)
[2021-01-03] MEDS ORDERED: METOCLOPRAMIDE HCL 5MG/ml INJ 2ml VIAL IV PRN (14:30)
[2021-01-03] MEDS: MAGNESIUM SULFATE 1GM/100ML 100 ML IV SCH ×2 (15:54→17:03)
[2021-01-03 16:35] VITALS: BP 107/72
[2021-01-03 19:51] LABS: INR 1.07 (0.9-1.15); Partial Thromboplastin Time 48.1 sec (23.0-31.2)
[2021-01-03] MEDS: INSULIN LANTUS (GLARGINE) 1 /0.01ml (100units/ml) SC SCH (22:00)
[2021-01-03 23:27] VITALS: BP 102/69
[2021-01-04 03:44] LABS: Basophils # (auto) 0 10 ^3/uL (0-0.2); Basophils % (auto) 0.4 % (0.0-2.0); Eosinophils # (auto) 0.2 10 ^3/uL (0-0.8); Hematocrit 29.3 % (41.0-53.0); Hemoglobin 10.5 g/dL (13.5-17.5); Lymphocytes # (auto) 1.6 10 ^3/uL (0.4-5.4); Lymphocytes % (auto) 28.8 % (10.0-50.0); Mean Corpuscular Hemoglobin 29.5 pg (28.0-32.0); Mean Corpuscular Hgb Conc. 35.7 g/dL (32.0-36.0); Mean Corpuscular Volume 82.7 fL (80.0-100.0); Monocytes # (auto) 0.6 10 ^3/uL (0-1.3); Neutrophils # (auto) 3.1 10 ^3/uL (1.6-8.6); Neutrophils % (auto) 56.8 % (37.0-80.0); Nucleated Red Blood Cells % 0.1 %; Platelet Count (auto) 90 10^3/uL (140-450); Red Blood Cells 3.54 10^6/uL (4.5-5.90); Red Cell Distribution Width 13.4 % (11.8-14.3); White Blood Cell 5.5 10^3/uL (4.4-10.8)
[2021-01-04 03:51] LABS: INR 1.07 (0.9-1.15)
[2021-01-04 03:54] LABS: BUN/Creatinine Ratio 4.2; Calcium 7.5 mg/dL (8.5-10.1); Potassium 3.1 mmol/L (3.5-5.1)
[2021-01-04 05:06] VITALS: BP 94/61
[2021-01-04] MEDS: ACCU-CHEK COMFORT CURVE STRIP VI SCH ×2 (06:37→11:28)
[2021-01-04] MEDS: InsuLIN REG 1unit/0.01ml Soln (100units/ml) SC SCH ×2 (06:39→11:34)
[2021-01-04] MEDS ORDERED: POTASSIUM CHL 20 Meq TABLET PO ONE (08:00)
[2021-01-04 09:00] VITALS: BP 103/72
[2021-01-04] MEDS: CLOTRIMAZOLE 1 % CREAM 15GM TOP SCH (10:00)
[2021-01-04] MEDS ORDERED: APIXABAN 5 MG TAB PO SCH (10:00)
[2021-01-04] MEDS: PANTOPRAZOLE 40 MG/10 ML VIAL INJ IV SCH (10:26)
[2021-01-04] MEDS ORDERED: GADOTERATE MEG 10 MMOL/20ml INJ (0.5MMOL/ml) IV ONE (11:27)
[2021-01-04] MEDS ORDERED: APIX5TAB PO (11:46)
[2021-01-04] MEDS ORDERED: METO-281 PO (11:48)
[2021-01-04] MEDS ORDERED: PANT40TA2 PO (11:48)
[2021-01-04 13:00] VITALS: BP 117/72
[2021-01-04] MEDS: LACTULOSE 20Gm/30ML SOLN PO SCH (13:07)
[2021-01-04 15:05] VITALS: BP 117/72
[2021-01-04] MEDS ORDERED: POTA1TAB61 PO (16:29)
[2021-01-04] MEDS ORDERED: LACT10SO3 PO (16:29)
[2021-01-07 11:18] VITALS: BP 101/47
[2021-01-11] MEDS ORDERED: APIXABAN 5 MG TAB PO SCH (10:00)
== END 2021-01-04 17:15 | disposition home or self-care (01) | DRG 134 ==
LOC: ER 21:28 → OVERFLOW 21:29 → TELE-CENTR 12-31 18:47 → CATH ICU 01-01 15:37 → ICU WEST 01-01 17:05 → TELE-CENTR 01-02 21:00
PROVIDERS: ADMIT Nurse Practitioner; ATTEND Internal Medicine
PROC: 5A12012 Performance of Cardiac Output, Single, Manual (ICD-10-PCS; 2020-12-31)
PROC: 02CR3ZZ Extirpation of Matter from Left Pulmonary Artery, Percutaneous Approach (ICD-10-PCS; principal; 2021-01-01)
PROC: 3E06317 Introduction of Other Thrombolytic into Central Artery, Percutaneous Approach (ICD-10-PCS; 2021-01-01)
PROC: 02CQ3ZZ Extirpation of Matter from Right Pulmonary Artery, Percutaneous Approach (ICD-10-PCS; 2021-01-01)
PROC: B31T1ZZ Fluoroscopy of Left Pulmonary Artery using Low Osmolar Contrast (ICD-10-PCS; 2021-01-01)
PROC: B31S1ZZ Fluoroscopy of Right Pulmonary Artery using Low Osmolar Contrast (ICD-10-PCS; 2021-01-01)
DX: I26.92 Saddle embolus of pulmonary artery without acute cor pulmonale (principal); E11.10 Type 2 diabetes mellitus with ketoacidosis without coma; N17.0 Acute kidney failure with tubular necrosis; I21.A1 Myocardial infarction type 2; E86.0 Dehydration; D69.6 Thrombocytopenia, unspecified; I95.9 Hypotension, unspecified; G40.909 Epilepsy, unspecified, not intractable, without status epilepticus; R55 Syncope and collapse; E87.1 Hypo-osmolality and hyponatremia; K59.00 Constipation, unspecified; I82.412 Acute embolism and thrombosis of left femoral vein; I82.432 Acute embolism and thrombosis of left popliteal vein; I82.442 Acute embolism and thrombosis of left tibial vein; R07.89 Other chest pain; N28.1 Cyst of kidney, acquired; E66.9 Obesity, unspecified; E87.3 Alkalosis; Z91.19 Patient's noncompliance with other medical treatment and regimen; Z68.30 Body mass index [BMI] 30.0-30.9, adult
CPT/HCPCS: 36415; 36600; 70450; 70551; 71045; 71250; 71275; 74176; 74183; 76942; 80048; 80053; 80061; 80307; 80320; 81001; 82010; 82805; 82962; 83036; 83735; 83880; 84100; 84132; 84484; 85007; 85025; 85027; 85379; 85610; 85730; 86850; 86900; 86901; 87081; 87426; 93005; 93306; 93970; 96361; 96365; 96366; 96372; 96375; 99152; 99153; C9113; G0378; J0330; J1815; J2001; J2405; Q9967